=== PATIENT | female | born 1965 | race Caucasian/White ===

== ENCOUNTER 2017-03-19 15:58 | Emergency (ER) | payer OTHER ==
--- NOTE | ~2017-03-19 | CT71 ---
[facility] A Service of [facility] RADIOLOGY TEXT RESULTS PATIENT: JOEY SILVA LOCATION: [facility] : 63 UNIT #: [id number] AGE: [address]: Carolina Major MD SEX: F ORDER DR: [id number] [place] [address] [facility]. [place], [place] [address] [id number] MR#: [id number] Acc #: [id number] NAME: JOEY SILVA : 1965 SEX: F STUDY DATE/TIME: 03/19/2017 18:04 UNIT: ALMA ROOM: STUDY DESCRIPTION: CT Head Wo Contrast Attending Physician: Carolina Major M.D. Ordering Physician: Carolina Major M.D. Primary Care Physician: Primary Care Physician No MEDICAL IMAGING REPORT This report is preliminary unless electronic signature is present EXAM CT of the brain no contrast, 03/19/2017 INDICATION Lethargy, slurred speech today. Alcohol on board, 1 gallon of vodka and 12 beers. Last drink was today. TECHNIQUE Noncontrast CT of the brain was performed. This CT exam was performed with one or more of the following radiation dose reduction techniques: automatic exposure control, adjustment of mA and/or kV according to patient size, and iterative reconstruction. COMPARISON We have no comparison studies. FINDINGS CT BRAIN: There is motion degradation. These were the best images possible. Sulci and ventricles are unremarkable. No midline shift. No evidence of acute intracranial hemorrhage. There is no mass, mass effect or edema to suggest acute infarct and no extraaxial fluid collections are present. Mild generalized atrophy. Probable mild chronic ischemic change in the periventricular white matter. Globes intact. Bones intact. Sinuses clear. IMPRESSION No clearly acute intracranial process. Motion degraded study. Dictated by... Austin Almazan M.D. THIS IS AN ELECTRONICALLY VERIFIED REPORT [facility] A Service of [facility] RADIOLOGY TEXT RESULTS PATIENT: JOEY SILVA LOCATION: [facility] : 63 UNIT #: [id number] AGE: [address]: Carolina Major MD SEX: F ORDER DR: Austin Almazan M.D. at 03/20/2017 1:59 PM ROBLES/gayathri TD: 03/20/2017 10:44 JOB #: [id number] MEDICAL IMAGING REPORT Page 1 of 1 COPY
--- NOTE | ~2017-03-19 | CR72 ---
[facility] A Service of [facility] & [facility] RADIOLOGY TEXT RESULTS PATIENT: JOEY SILVA LOCATION: [facility] : 63 UNIT #: [id number] AGE: [address]: Carolina Major MD SEX: F ORDER DR: [id number] [facility] [address] [place], [place] [address] [id number] MR#: [id number] Acc #: [id number] NAME: JOEY SILVA : 1965 SEX: F STUDY DATE/TIME: 03/19/2017 17:30 UNIT: [facility] ROOM: STUDY DESCRIPTION: CR Chest Single View Portable Attending Physician: Carolina Major M.D. Ordering Physician: Carolina Major M.D. Primary Care Physician: No Primary Care Physician MEDICAL IMAGING REPORT This report is preliminary unless electronic signature is present EXAM Single view chest. INDICATIONS COPD and shortness of air. Altered mental status. FINDINGS Single portable AP view of the chest compared to 11/13/2014. Heart and mediastinal contours are unchanged. There is increased interstitial markings in both lungs with more focal airspace opacities in both lung bases. There is no pleural effusion. No pneumothorax. IMPRESSION Increased interstitial opacities in both lungs with more pronounced opacities in the lung bases. This probably represents a development of some interstitial edema, however, correlate for any evidence of an infection. Dictated by... Demetrio Tamez M.D. THIS IS AN ELECTRONICALLY VERIFIED REPORT Demetrio Tamez M.D. at 03/20/2017 3:05 PM VANESSA/mary lou TD: 03/20/2017 09:58 JOB #: [id number] MEDICAL IMAGING REPORT Page 1 of 1 COPY
[2017-03-19 17:19] LABS: BASOPHIL% 0.1 % (0-2.5); EOSINOPHIL% 0.3 % (0.0-7.0); HEMATOCRIT 37.2 % (35.0-45.0); HEMOGLOBIN 12.9 gm/dL (12.0-16.0); LYMPHOCYTE# 1.3 X10e3 (1.0-3.5); LYMPHOCYTE% 22.1 % (17.0-45.0); MEAN CELL VOLUME 99.7 FL (83-96); MEAN CORPUSCULAR HEMOGLOBIN 34.4 PG (28-34); MEAN CORPUSCULAR HGB CONC 34.5 g/dL (30-36); MONOCYTE# 0.6 X10e3 (0-1.0); MONOCYTE% 10.8 % (3.0-12.0); NEUTROPHIL% 66.7 % (40-75); PLATELET COUNT 51 X10e3 (140-420); RED BLOOD COUNT 3.74 X10e (3.90-5.30); RED CELL DISTRIBUTION WIDTH 14.5 % (11.0-15.5); WHITE BLOOD COUNT 5.9 X10e3 (4.0-10.5)
[2017-03-19 17:20] LABS: DIFF IND YES
[2017-03-19 17:25] LABS: URINE SOURCE CLEAN CATCH
[2017-03-19 17:28] LABS: INR 0.9; PARTIAL THROMBOPLASTIN TIME 36.9 SECONDS (23.5-31.3); PROTHROMBIN TIME (PATIENT) 9.6 SECONDS (10.0-11.7)
[2017-03-19 17:35] LABS: URINE APPEARANCE CLEAR; URINE BILIRUBIN NEG (NEG); URINE BLOOD TRACE (NEG); URINE COLOR YELLOW; URINE GLUCOSE NEG (NEG); URINE KETONE TRACE (NEG); URINE LEUKOCYTE ESTERASE NEG (NEG); URINE NITRATE NEG (NEG); URINE PH 5.5 (5-8); URINE PROTEIN NEG (NEG); URINE SPECIFIC GRAVITY 1.005 (1.003-1.035); URINE UROBILINOGEN 0.2 MG/DL (NEG)
[2017-03-19 17:37] LABS: CULTURE INDICATED? YES; URBCS1 AUWI 0-2 /[HPF] (0-2); URINE BACTERIA AUWI 1+ (NEGATIVE); UWBCS1 AUWI 0-2 (0-5)
[2017-03-19 17:42] LABS: BILIRUBIN, DIRECT 0.2 mg/dL (0.0-0.2); BILIRUBIN,INDIRECT 0.7 mg/dL (0.0-0.9); BILIRUBIN,TOTAL 0.9 mg/dL (0.2-2.0); BUN/CREATININE RATIO 16.66; CALCIUM SERUM 8.5 mg/dL (8.4-10.2); CREATININE SERUM 0.3 mg/dL (0.6-1.4); GLOM FILT RATE Estimated 131.7 mL/min (>60); POTASSIUM 3.6 mmol/L (3.5-5.1); PROTEIN TOTAL SERUM 7.7 g/dL (6.0-8.3)
[2017-03-19 17:45] LABS: AMPHETAMINE NEG (NEG); BARBITURATES NEG (NEG); BENZODIAZEPINES POS (NEG); COCAINE NEG (NEG); MARIJUANA NEG (NEG); OPIATES NEG (NEG); TRICYCLIC ANTIDEPRESSANTS NEG (NEG); U METHADONE NEG (NEG)
[2017-03-19 17:45] LABS: PLATELET ESTIMATE DECREASED (NORMAL)
[2017-03-19 17:47] LABS: URINE SQUAMOUS EPITHELIAL CELL OCCAS /[HPF]
== END 2017-03-20 01:30 ==
LOC: CED 15:58
PROVIDERS: Student in an Organized Health Care Education/Training Program
DX: S05.11XA Contusion of eyeball and orbital tissues, right eye, initial encounter (principal); F10.129 Alcohol abuse with intoxication, unspecified; J44.9 Chronic obstructive pulmonary disease, unspecified; F17.200 Nicotine dependence, unspecified, uncomplicated; Z88.5 Allergy status to narcotic agent; W19.XXXA Unspecified fall, initial encounter
CPT/HCPCS: 36415; 70450; 71010; 80048; 80076; 80307; 81003; 82150; 83690; 83735; 85025; 85610; 85730; 87086; 96361; 96374; 96375; 99285; C9113; G0480; J2060; J2405

== ENCOUNTER 2017-03-19 22:38 | Inpatient (IN) | payer OTHER ==
[~2017-03-19] VITALS: Ht 162.6 cm; Wt 62.6 kg
--- NOTE | ~2017-03-19 | PN ---
Unit #: [id number] #: [id number] Patient: JOEY SILVA [id number] [facility] [address] [place] [address] [id number] MR#: [id number] NAME: JOEY SILVA ROOM: 71 Age: 51 Sex: F Admission Date: 03/20/2017 : 1965 Attending Physician: Yogesh Goff M.D. Admitting Physician: Yogesh Goff M.D. Primary Care Physician: Primary Care Physician Esthela AUSTIN NOTES DATE OF SERVICE 03/22/2017 DISCUSSION Ms. Silva is a 51-year-old white female who was seen today. Chart was reviewed and case was discussed with the staff. She has been anxious, withdrawn, and rather seclusive to herself and reports not feeling good and appears to still going into delirium tremens as she stated that she has started seeing things, and she thought her cat has gotten into her bed behind her pillow. She also has been seeing other animals and bugs in the gutierrez and that she tries to control them, and she gets frustrated from not being able to get rid of them. Meanwhile, she still has been anxious, restless, and tremulous, and rather unsteady on her feet. She has been taking the medications and tolerating them fairly well. MENTAL STATUS EXAMINATION Middle-aged white female who is casually dressed with fair personal hygiene and appears to be in slight distress and discomfort. She was awake and alert with impaired attention and concentration. Her mood is anxious with congruent affect. Speech is slow and restricted in content. She reports having visual hallucination, but denies any suicidal or homicidal ideations. Her insight and judgment remain slightly impaired. TREATMENT PLAN 1. We will recommend adding Seroquel as an antipsychotic, and we will monitor her response to the medications and make further adjustments as needed. 2. We will continue to follow up. Dictated by... Kalpesh Cardoza/zachary TD: 03/22/2017 14:53 JOB #: [id number] Unit #: [id number] #: [id number] [facility] PRO[facility] NOTES Page 1 of 1 X Yogesh Goff MD NOTE
--- NOTE | ~2017-03-19 | TN ---
Unit #: [id number] #: [id number] Patient: JOEY GRAY [id number] [facility] [address] [place] [address] [id number] MR#: [id number] NAME: JOEY GRAY ROOM: 71 Age: 51 Sex: F Admission Date: 03/20/2017 : 1965 Discharge Date: 03/26/2017 Attending Physician: Yogesh Goff M.D. Primary Care Physician: Primary Care Physician No LOC TRANSFER NOTE DATE OF SERVICE: 03/27/2017 DATE OF SERVICE 03/27/2017. HISTORY OF PRESENT ILLNESS Ms. Gray is a 51-year-old single white female, who is a resident of [place], [place], and was stepped down to the outpatient treatment program from the adult inpatient psychiatric unit, where she was hospitalized under my care at [facility] from 03/20/2017 to 03/26/2017 and was on the adult chemical dependency unit with a history of alcohol dependence and had a rather complicated and prolonged detox from alcohol. However, she was able to come out of the detox completely and was discharged home. On evaluation by me, the patient reports that she went home to her partner and had a stable living environment and that she has been doing fairly well and is currently clean for almost 8 days and has not any cravings, neither did she have any relapse coming out of the hospital going home. She does report some anxiety, but denies any depression and also denies any suicidal thoughts. SUBSTANCE ABUSE HISTORY The patient reports history of alcohol dependence and describes alcohol to be her drug of choice and denies any other substance abuse issues. PAST PSYCHIATRIC HISTORY The patient has a history of inpatient chemical dependency treatment at [facility], and review of the medical records indicate that currently she is not taking any psychotropic medications. PAST MEDICAL HISTORY No acute or chronic medical illnesses. PERSONAL AND SOCIAL HISTORY A 51-year-old white female, who reports that she lives at home with her partner and is currently unemployed and reports fairly decent social support system. MENTAL STATUS EXAMINATION Middle-aged white female, who was casually dressed with fair personal hygiene, appears to be in no acute distress or discomfort. She was awake and alert on interaction with intact orientation. Her mood was anxious and depressed with a congruent affect. She denies any suicidal or homicidal ideations and also denies any auditory or visual hallucinations. Unit #: [id number] #: [id number] Patient: JOEY GRAY Her insight and judgment remain slightly impaired. DIAGNOSTIC IMPRESSION Psychiatric: Alcohol dependence, moderate and alcohol-induced mood disorder. Medical: None. Stressors: Moderate psychosocial stressors. TREATMENT PLAN 1. The patient has presented with a history of mood disorder and substance abuse. We will recommend enrolling her into the outpatient treatment program and maintaining her on her current medications and encouraging her to participate in therapy groups and to practice sobriety. 2. Supportive therapy was provided to the patient. 3. Safe, structured, and nourishing environment will be provided. ESTIMATED LENGTH OF STAY 5 to 7 days. ABILITY TO HELP SELF Limited. WILLINGNESS TO HELP SELF The patient appears to be willing to help self. STRENGTHS 1. Communicative. 2. Cooperative. PROBLEMS 1. Chronic dysphoric symptoms. 2. Chronic chemical dependency. 3. Poor social support system. DISCHARGE CRITERIA This will be contingent upon the patient's ability to show resolution of her depression and anxiety as well as her ability to stay safe to herself, particularly after discharge from the hospital. Dictated by... Yogesh Goff M.D. UMA/samira TD: 03/28/2017 16:14 JOB #: [id number] LOC TRANSFER NOTE Page 1 of 1 X Yogesh Goff MD X LOC TRANSFER NOTE
--- NOTE | ~2017-03-19 | HP ---
Unit #: [id number] #: [id number] Patient: JOEY SILVA [id number] [place] [address] [id number] I MR#: [id number] NAME: JOEY SILVA ROOM: [facility] Age: 51 Sex: F Admission Date: 03/20/2017 : 1965 Attending Physician: Yogesh Goff M.D. Admitting Physician: Yogesh Goff M.D. Primary Care Physician: Primary Care Physician No HISTORY AND PHYSICAL HISTORY OF PRESENT ILLNESS Joey is a 51 year old admitted to [facility] because of her abuse of alcohol. PAST MEDICAL HISTORY 1. Long history of alcohol abuse. 2. COPD. PAST SURGICAL HISTORY 1. Right hand. 2. Fractured right femur with ORIF. ALLERGIES Codeine. SOCIAL HISTORY Smokes one pack per day, drinks a gallon of vodka on a daily basis. Denies illicit drug use. FAMILY HISTORY Medically noncontributory. REVIEW OF SYSTEMS CONSTITUTIONAL: No fever or chills. HEENT: Denies any sore throat, ear pain or runny nose. CARDIOVASCULAR: Denies chest pain, irregular heart rhythm or palpitations. CHEST: Denies shortness of breath or cough. No hemoptysis. GASTROINTESTINAL: Denies nausea, vomiting, diarrhea or chronic constipation. ENDOCRINE: Denies history of increased thirst or urination. No recent significant weight loss or gain. GENITOURINARY: Denies dysuria, frequency, or hematuria. SKIN: Denies any rashes. HEMATOLOGIC: Denies history of increased bleeding or bruising. MUSCULOSKELETAL: Denies any hot, swollen joints. No generalized muscle pain. NEUROLOGIC: Denies problems with vision or speech. No frequent, severe headaches. No numbness, tingling or weakness in any extremities. Denies loss of bladder or bowel control. CURRENT MEDICATIONS Detox protocol. Unit #: [id number] #: [id number] Patient: JOEY SILVA PHYSICAL EXAMINATION GENERAL: Alert, well-nourished, in no apparent distress. VITAL SIGNS: Blood pressure 100/58, heart rate 80, respirations 16, temperature 98.6. WEIGHT: 138 pounds. HEIGHT: 5'4". SKIN: Warm and dry without rash or lesion. HEENT: Normocephalic. TMs not viewed. Oral and nasal passages clear. Conjunctivae clear. Pupils equal, round and reactive to light and accommodation. Extraocular movements intact. Bruising of the right orbit and abrasion across the bridge of her nose noted. NECK: Supple without lymphadenopathy or thyromegaly. HEART: Regular rate and rhythm without murmur. LUNGS: Clear. ABDOMEN: Soft, nontender. : Not done. EXTREMITIES: No evidence of cyanosis, clubbing or edema. Moves all extremities without focal deficit. NEUROLOGICAL: Grossly within normal limits. Cranial Nerves: II: Visual flores are intact. III, IV AND : Extraocular movements are intact. Pupils are equal, round and reactive to light. V: Facial sensation is grossly normal. VII: Facial movements and expression are normal. VIII: Auditory acuity grossly intact. IX, X: Uvula is midline. Phonation is normal. XI: Patient shrugs shoulders and turns head normally. XII: Tongue protrudes in the midline. Sensory and Motor Function: Sensory and motor sensation is grossly normal. Motor: moves all extremities well. Coordination: Gait is normal. Deep Tendon Reflexes: Intact. IMPRESSION Psychiatric admission RECOMMENDATIONS PSYCHIATRIC: Per psychiatrist. MEDICAL: I see no contraindications to participating in facility's activities. MEDICAL PROGNOSIS Good. MEDICAL CONDITION Stable. Dictated by... Amna Cho PCelineACeline-Chelsey. for Kalpesh Zavala/nel TD: 03/21/2017 05:00 JOB #: [id number] Unit #: [id number] #: [id number] Patient: JOEY SILVA HISTORY AND PHYSICAL Page 1 of 1 X Amna Cho HISTORY AND PHYSICAL
--- NOTE | ~2017-03-19 | PA ---
Unit #: [id number] #: [id number] Patient: JOEY GRAY [id number] [facility] [address] [place] [address] [id number] I MR#: [id number] NAME: JOEY GRAY ROOM: P171 Age: 51 Sex: F Admission Date: 03/20/2017 : 1965 Date of Assessment: 03/20/2017 Attending Physician: Yogesh Goff M.D. Admitting Physician: Yogesh Goff M.D. Primary Care Physician: Primary Care Physician No PSYCHIATRIC ASSESSMENT DATE OF SERVICE 03/20/2017. IDENTIFYING DATA Ms. Gray is a 51-year-old single white female, who is a resident of [place], [place], and was transferred to us from [facility] Emergency Room, where she was brought in with blood alcohol level of 0.091. CHIEF COMPLAINT "I've been drinking and dealing with depression." HISTORY OF PRESENT ILLNESS Ms. Gray is a 51-year-old white female with dual diagnosis of alcohol dependence and mood disorder, who took herself to the emergency room at [facility] where upon presentation, she stated "I've been drinking. I've been dealing with depression. I drank a couple of gallons of vodka a day and I've been depressed for the last 2 years. In 2015, one of my brothers committed suicide and my other brother of cancer in the same month." The patient reports that her last drink was today and was unable to quantify how much she has been drinking for the last 24 hours and reports that she has been decompensating on her mood and has not been able to function and does report increasing depression, anxiety, feelings of hopelessness and helplessness, and suicidal ideations. ER nurse reported that the patient presented stating that she wants help for alcohol and that she has been drinking a gallon of vodka and 12 beers a day and her drug screen also came back to be positive for benzodiazepines and reports grief and loss and was seen to be a significant threat to herself and as such, recommendation for inpatient level of care for safety and stabilization was made and patient was transferred to us. SUBSTANCE ABUSE HISTORY The patient reports long history of alcohol dependence, stating that she has been drinking since she was 14 years old and currently has been drinking a gallon of vodka a day. PAST PSYCHIATRIC HISTORY The patient has had history of multiple inpatient and chemical dependency treatments including being at [facility] and has had outpatient treatment as well and review of the medical records indicate currently she is not active in treatment program, is not seeing a psychiatrist, and is not taking any psychotropic medications. Unit #: [id number] #: [id number] Patient: JOEY GRAY PAST MEDICAL HISTORY No acute or chronic medical illnesses. ALLERGIES Codeine. CURRENT MEDICATIONS None. PERSONAL AND SOCIAL HISTORY A 51-year-old white female, who reports that she lives at home with her significant other and is unemployed and has poor social support system. MENTAL STATUS EXAMINATION Middle-aged white female who was casually dressed with fair personal hygiene, appears to be in no acute distress or discomfort. She was awake and alert on interaction with intact orientation to time, place, and person. Her mood was anxious and depressed with a congruent affect. Her speech was slow and goal directed. She denies any suicidal or homicidal ideations and also denies any auditory or visual hallucinations. Her insight and judgment remain significantly impaired. DIAGNOSTIC IMPRESSION Psychiatric: Alcohol dependence, moderate and acute withdrawals; alcohol-induced mood disorder. Medical: None. Stressors: Moderate psychosocial stressors. TREATMENT PLAN 1. The patient has presented with history of substance abuse and mood disorder, and has been decompensating and will need inpatient hospitalization for detoxification. We will start her back on her home medications. We will start her on detox protocol. 2. Supportive therapy was provided to the patient. 3. Safe, structured, and nourishing environment will be provided. ESTIMATED LENGTH OF STAY 4 to 5 days. ABILITY TO HELP SELF Limited. WILLINGNESS TO HELP SELF The patient appears to be willing to help self. STRENGTHS 1. Communicative. 2. Cooperative. PROBLEMS 1. Chronic dysphoric symptoms. 2. Chronic chemical dependency. 3. Poor social support system. DISCHARGE CRITERIA This will be contingent upon the patient's ability to go through detox without having any significant withdrawal symptoms as well as her ability to stay safe to herself, particularly after discharge from the hospital. Unit #: [id number] #: [id number] Patient: JOEY GRAY Dictated by... Yogesh Goff M.D. UMA/samira TD: 03/20/2017 06:33 JOB #: [id number] PSYCHIATRIC ASSESSMENT Page 1 of 1 X Yogesh Goff MD PSYCHIATRIC ASSESSMENT
--- NOTE | ~2017-03-19 | DS ---
Unit #: [id number] #: [id number] Patient: JOEY GRAY [id number] [facility] [address] [place] [address] [id number] I MR#: [id number] NAME: JOEY GRAY ROOM: 71 Age: 51 Sex: F Admission Date: 03/20/2017 : 1965 Discharge Date: 03/26/2017 Attending Physician: Yogesh Goff M.D. Primary Care Physician: Primary Care Physician No DISCHARGE SUMMARY IDENTIFYING DATA Ms. Gray is a 51-year-old, single, white female who is a resident of [place], [place] and was transferred to us from [facility] Emergency Room, where she was brought in with a blood alcohol level of 0.091. DISCHARGE DIAGNOSES Psychiatric: Alcohol dependence, moderate and acute withdrawals; alcohol-induced mood disorder. Medical: None. Stressors: Mild psychosocial stressors. HISTORY OF PRESENT ILLNESS Please see initial psychiatric evaluation for details. PAST PSYCHIATRIC HISTORY Please see initial psychiatric evaluation for details. PAST MEDICAL HISTORY Please see initial psychiatric evaluation for details. HOSPITAL COURSE The [facility] and was oriented to the hospital environment. Routine p.r.n. medications were initiated, and she was started on the detox protocol and was closely monitored. She was seen to be anxious, restless, withdrawn, and was having some complicated withdrawals; however, she was polite and pleasant, and cooperative with treatment recommendations and was able to come out of the detox without any complications and was denying any suicidal or homicidal ideations, and was not seen to be danger to self or anyone else, and as such, it was decided that she will be discharged home and will continue treatment on an outpatient basis. DISCHARGE MEDICATIONS None. DISCHARGE CONDITION Stable. PROGNOSIS Fair. Dictated by... Unit #: [id number] #: [id number] Patient: JOEY GRAY Kalpesh Cardoza/samira TD: 03/26/2017 19:06 JOB #: [id number] DISCHARGE SUMMARY Page 1 of 1 X Yogesh Goff MD DISCHARGE SUMMARY
--- NOTE | ~2017-03-19 | PN ---
Unit #: [id number] #: [id number] Patient: JOEY GRAY [id number] [facility] [address] [place] [address] [id number] I MR#: [id number] NAME: JOEY GRAY ROOM: 71 Age: 51 Sex: F Admission Date: 03/20/2017 : 1965 Attending Physician: Yogesh Goff M.D. Admitting Physician: Yogesh Goff M.D. Primary Care Physician: Primary Care Physician Esthela AUSTIN NOTES DATE 03/24/2017 DISCUSSION Ms. Gray is a 51-year-old white female who was seen today and chart was reviewed and case was discussed with the staff. She has been anxious, withdrawn and rather seclusive to herself. Meanwhile, she has been cooperative with treatment recommendations and has been taking medications and tolerating them fairly well with no reported side effects. MENTAL STATUS EXAMINATION Young white female who was casually dressed with fair personal hygiene and appears to be in no acute distress or discomfort. She was awake and alert on interaction with intact orientation. Her mood was anxious with congruent affect. She denies any suicidal or homicidal ideation, auditory or visual hallucinations. Her insight and judgement remains slightly impaired. TREATMENT PLAN 1. Will continue on current medications and treatment protocol. Will monitor her response to the medications and make further adjustments as needed. 2. Will continue to follow up. Dictated by... Yogesh Goff M.D. IAA/venkatesh TD: 03/24/2017 19:51 JOB #: [id number] Unit #: [id number] #: [id number] Patient: JOEY GRAY PHILOMENARADHA PROGRESS NOTES Page 1 of 1 X Yogesh Goff MD PROGRESS NOTE
--- NOTE | ~2017-03-19 | PN ---
Unit #: [id number] #: [id number] Patient: JOEY SILVA [id number] [facility] [address] [place] [address] [id number] I MR#: [id number] NAME: JOEY SILVA ROOM: 71 Age: 51 Sex: F Admission Date: 03/20/2017 : 1965 Attending Physician: Yogesh Goff M.D. Admitting Physician: Yogesh Goff M.D. Primary Care Physician: Primary Care Physician Esthela WELDON PROGRESS NOTES DATE March 25, 2017 DISCUSSION Ms. Silva is a 51-year-old white female, who was seen today and chart was reviewed and the case was discussed with the staff. The patient has been doing fairly well and appears to be coming out of the detox without any complications and has been calm and cooperative and has been taking the medications and tolerating them fairly well with no reported side effects. MENTAL STATUS EXAMINATION Middle-aged white female, who was casually dressed with fair personal hygiene and appears to be in no acute distress or discomfort. She was awake and alert with intact orientation. Her mood was anxious with a congruent affect. The patient denies any suicidal or homicidal ideations. Her insight and judgment remain slightly impaired. TREATMENT PLAN 1. We will continue her on her current medications and treatment protocol, and will monitor her response to the medications, and make further adjustments as needed. 2. We will continue to followup. Dictated by... Kalpesh Cardoza/sandro TD: 03/26/2017 08:38 JOB #: [id number] Unit #: [id number] #: [id number] Patient: JOEY SILVA PHILOMENARADHA PROGRESS NOTES Page 1 of 1 X Yogesh Goff MD PROGRESS NOTE
--- NOTE | ~2017-03-19 | PN ---
Unit #: [id number] #: [id number] Patient: JOEY SILVA [id number] [facility] [address] [place] [address] [id number] MR#: [id number] NAME: JOEY SILVA ROOM: [facility] Age: 51 Sex: F Admission Date: 03/20/2017 : 1965 Attending Physician: Yogesh Goff M.D. Admitting Physician: Yogesh Goff M.D. Primary Care Physician: Primary Care Physician Esthela AUSTIN NOTES DATE OF SERVICE 03/23/2017 DISCUSSION Ms. Silva is a 51-year-old white female who was seen today. Chart was reviewed and case was discussed with the staff. She remains anxious, withdrawn, disorganized, and appears to be doing somewhat better. However, she still has been reporting some visual hallucinations. She was started on Seroquel last night and took her first dose without any tolerability issues. MENTAL STATUS EXAMINATION Middle-aged white female who is casually dressed with fair personal hygiene, appears to be in no acute distress or discomfort. She was awake and alert with impaired attention and concentration. Her mood is anxious with a congruent affect. She denies any suicidal or homicidal ideation though she does report visual hallucinations. Her insight and judgment remain significantly impaired. TREATMENT PLAN 1. We will continue her on her current medications and treatment protocol. We will monitor her response to medications and make further adjustments as needed. 2. We will continue to follow up. Dictated by... Kalpesh Cardoza/zachary TD: 03/23/2017 08:43 JOB #: [id number] Unit #: [id number] #: [id number] Patient: JOEY SILVA PHILOMENARADHA PROGRESS NOTES Page 1 of 1 X Yogesh Goff MD PROGRESS NOTE
--- NOTE | ~2017-03-19 | PN ---
Unit #: [id number] #: [id number] Patient: JOEY GRAY [id number] [facility] [address] [place] [address] [id number] MR#: [id number] NAME: JOEY GRAY ROOM: [facility] Age: 51 Sex: F Admission Date: 03/20/2017 : 1965 Attending Physician: Yogesh Goff M.D. Admitting Physician: Yogesh Goff M.D. Primary Care Physician: Primary Care Physician Esthela AUSTIN NOTES DATE OF SERVICE 03/21/2017 DISCUSSION Ms. Gray is a 51-year-old white female who was seen today. Chart was reviewed and case was discussed with the staff. She has been anxious, withdrawn, and seclusive to herself. Meanwhile, she has been cooperative with the treatment recommendations and has been taking the medications and tolerating them fairly well with no reported side effects. MENTAL STATUS EXAMINATION Middle-aged white female who is casually dressed with fair personal hygiene, appears to be in no acute distress or discomfort. The patient was awake and alert on interaction with intact orientation. Her mood is anxious with a congruent affect. She denies any suicidal or homicidal ideation. Her insight and judgment remain slightly impaired. TREATMENT PLAN 1. We will continue her on her current treatment protocol. We will monitor her response to the medications and make further adjustments as needed. 2. We will continue to follow up. Dictated by... Yogesh Goff M.D. IAA/bzg TD: 03/21/2017 12:56 JOB #: [id number] [facility] PROGRESS NOTES Page 1 of 1 X Yogesh Goff MD PROGRESS NOTE
[2017-03-20 10:01] LABS: BASOPHIL% 0.2 % (0-2.5); EOSINOPHIL% 0.6 % (0.0-7.0); HEMATOCRIT 36.9 % (35.0-45.0); HEMOGLOBIN 12.6 gm/dL (12.0-16.0); LYMPHOCYTE% 23.6 % (17.0-45.0); MEAN CELL VOLUME 100.7 FL (83-96); MEAN CORPUSCULAR HEMOGLOBIN 34.3 PG (28-34); MEAN CORPUSCULAR HGB CONC 34.1 g/dL (30-36); MEAN PLATELET VOLUME 8.8 FL (6.5-11.5); MONOCYTE# 0.4 X10e3 (0-1.0); MONOCYTE% 8.9 % (3.0-12.0); NEUTROPHIL# 2.7 X10e3 (1.5-7.1); NEUTROPHIL% 66.7 % (40-75); RED BLOOD COUNT 3.66 X10e (3.90-5.30); RED CELL DISTRIBUTION WIDTH 14.3 % (11.0-15.5); WHITE BLOOD COUNT 4.1 X10e3 (4.0-10.5)
[2017-03-20 10:09] LABS: ALBUMIN SERUM 3.3 g/dL (3.5-5.0); BILIRUBIN,TOTAL 1.3 mg/dL (0.2-2.0); BUN/CREATININE RATIO 23.33; CALCIUM SERUM 8.5 mg/dL (8.4-10.2); CREATININE SERUM 0.3 mg/dL (0.6-1.4); GLOM FILT RATE Estimated 131.7 mL/min (>60); POTASSIUM 3.9 mmol/L (3.5-5.1)
[2017-03-20 10:14] LABS: DIFF IND YES; PLATELET COUNT 52 X10e3 (140-420)
[2017-03-20 10:18] LABS: ANISOCYTOSIS SL; PLATELET ESTIMATE DECREASED (NORMAL)
[2017-03-22 12:28] LABS: URINE APPEARANCE CLEAR; URINE BLOOD NEG (NEG); URINE COLOR DK YELLOW; URINE GLUCOSE NEG (NEG); URINE KETONE TRACE (NEG); URINE LEUKOCYTE ESTERASE NEG (NEG); URINE NITRATE NEG (NEG); URINE PROTEIN NEG (NEG); URINE SPECIFIC GRAVITY 1.022 (1.003-1.035)
[2017-03-22 12:40] LABS: AMPHETAMINE NEG (NEG); BARBITURATES NEG (NEG); BENZODIAZEPINES POS (NEG); COCAINE NEG (NEG); MARIJUANA NEG (NEG); OPIATES NEG (NEG); TRICYCLIC ANTIDEPRESSANTS NEG (NEG); U METHADONE NEG (NEG); URINE BILIRUBIN NEG (NEG)
== END 2017-03-26 10:14 | DRG 897 ==
LOC: P1E 03-20 01:50
PROVIDERS: Psychiatry & Neurology Psychiatry
PROC: HZ2ZZZZ Detoxification Services for Substance Abuse Treatment (ICD-10-PCS; principal; 2017-03-20)
DX: F10.239 Alcohol dependence with withdrawal, unspecified (principal); F10.24 Alcohol dependence with alcohol-induced mood disorder; J44.9 Chronic obstructive pulmonary disease, unspecified; F17.210 Nicotine dependence, cigarettes, uncomplicated
CPT/HCPCS: 80053; 80307; 81003; 85025; 86592